=== PATIENT | female | born 1955 | race Caucasian/White ===

== ENCOUNTER 2018-01-19 10:18 | Emergency (ER) | payer OTHER ==
[2018-01-19] MEDS: HYDROCODONE/APAP (5/325) TAB PO (10:45)
[2018-01-19] MEDS: KETOROLAC 30 MG INJ IM (10:46)
== END 2018-01-19 11:45 | disposition home or self-care (01) ==
LOC: FTE 10:18
DX: M54.41 Lumbago with sciatica, right side (principal); E11.9 Type 2 diabetes mellitus without complications; F17.210 Nicotine dependence, cigarettes, uncomplicated
CPT/HCPCS: 72100; 96372; 99284-25